=== PATIENT | female | born 1955 | race Caucasian/White ===

== ENCOUNTER 2020-10-25 09:59 | Emergency (ER) | payer OTHER ==
[~2020-10-25 09:59] MED LIST: COLACE100 MG PO; CYCLOBENZAPRINE10 MG PO; ESTRADIOL0.5 MG PO; FLONASE ALLER15.8 ML; NORCO 5-325 TA1 EACH PO; PROGESTERONE100 MG PO; UROXATRAL10 MG PO; ZYRTEC10 MG PO
[2020-10-25 11:16] LABS: BASOPHIL 1.2 % (0-2); EOSINOPHIL 1.4 % (0-5); HCT 38.2 % (37.0-47.0); HGB 12.5 g/dl (12.5-16.0); LYMPHOCYTE 26.8 % (15-48); MCH 31.3 pg (25.0-31.0); MCHC 32.7 g/dL (32.0-36.0); MCV 95.7 fL (78.0-100.0); MONOCYTE 9.8 % (0-12); MPV 9.5 fL (6.0-9.5); NEUTROPHIL 60.6 % (41-80); NRBC 0; PLT 290 K/uL (150-400); RBC 3.99 M/uL (4.20-5.40); RDW 12.5 % (11.5-14.0); WBC 4.3 K/uL (4.0-10.5)
[2020-10-25 11:29] LABS: ALBUMIN 3.6 g/dL (3.4-5.0); BILIRUBIN - TOTAL 0.3 mg/dL (0.2-1.0); BUN/CREAT RATIO (CALC) 26.2 RATIO; CREATININE 0.65 mg/dL (0.51-0.95); GLOBULIN (CALCULATION) 2.7 g/dL; POTASSIUM 4.3 mmol/L (3.5-5.1); TOTAL PROTEIN 6.3 g/dL (6.4-8.2)
[2020-10-25 11:58] LABS: CKMB 1.7 ng/mL (0.0-3.6)
== END 2020-10-25 13:20 | disposition home or self-care (01) ==
LOC: FER 09:59
PROVIDERS: Emergency Medicine
DX: R07.89 Other chest pain (principal); Z88.5 Allergy status to narcotic agent
CPT/HCPCS: 36415; 71046; 80053; 82553; 84484; 85025; 85379; 93005